=== PATIENT | female | born 1930 | race Caucasian/White ===

== ENCOUNTER → 2016-12-01 | Outpatient (CLI) | payer OTHER ==
[~2016-12-01] MED LIST: ACET-1256 PO; CALC600T9 PO; CHOL1000 PO; FSMD/70 PO; GEMF600T PO; LISI-787 PO; MAGN400T6 PO; MULT-190 PO; POTA10CA28 PO
[2016-12-01 13:10] LABS: BASO % 0.4 %; BASO ABS # 0.02 K/uL (0-0.2); COMPLETE YES; EOS % 1.8 %; HEMATOCRIT 34.8 % (37-47); LYMPH % 26.8 %; LYMPH ABS # 1.32 K/uL (1.2-3.4); MEAN CELL VOLUME 91.8 fL (80-100); MEAN CORPUSCULAR HEMOGLOBIN 30.6 pg (25-34); MEAN CORPUSCULAR HGB CONC 33.3 g/dl (32-36); MEAN PLATELET VOLUME 9.6 fL (7.4-10.4); MONO % 8.3 %; NEUT % 62.7 %; PLATELET COUNT 337 K/uL (130-400); RED BLOOD COUNT 3.79 M/uL (4.2-5.4); WHITE BLOOD COUNT 4.92 K/uL (4.8-10.8)
[2016-12-01 13:35] LABS: ALT/SGPT 15 U/L (12-78); AST/SGOT 18 U/L (15-37); BLOOD UREA NITROGEN 24 mg/dl (7-18); BUN/CREATININE RATIO 29.9 (10-20); CALCIUM 9.5 mg/dl (8.5-10.1); CARBON DIOXIDE 30 mmol/L (21-32); CHLORIDE 104 mmol/L (98-107); CHOLESTEROL 177 mg/dl (0-200); CREATININE 0.81 mg/dl (0.60-1.20); GLUCOSE 90 mg/dl (70-99); HDL CHOLESTEROL 90 mg/dl; LDL CHOLESTEROL CALCULATED 70 mg/dl; POTASSIUM 3.6 mmol/L (3.5-5.1); SODIUM 142 mmol/L (136-145); TRIGLYCERIDES 85 mg/dl (0-150); VERY LOW DENSITY LIPOPROT CALC 17 mg/dl
--- NOTE | 2016-12-09 06:30 | CODING QUERY MEDICAL NECESSITY ---
SUPPORTING DIAGNOSIS NEEDED Dr. Swanson, A supporting diagnosis is required for the test/procedure performed on this patient in order for us to be reimbursed by the patient's insurance. Please provide a supporting diagnosis for the following test/procedure listed below next to the test name along with your signature. *If there is no additional diagnosis for this patient that would support the following test/procedure please document that below next to the test/procedure. Test(s)/Procedure(s) that require a supporting diagnosis: * ([id number]) VITAMIN D ASSAY DIAGNOSIS: DATE OF SERVICE: 12/01/16 Provider Signature: Date: Thank you Artie Foster [facility] Information Management Once completed, please kindly fax back to [phone] For questions please call [phone]
== END | disposition home or self-care (01) ==
LOC: C.LABMFLN 11:25
PROVIDERS: ATTEND Family Medicine
DX: G89.18 Other acute postprocedural pain (principal); M54.16 Radiculopathy, lumbar region; E78.5 Hyperlipidemia, unspecified; I10 Essential (primary) hypertension; D64.9 Anemia, unspecified

== ENCOUNTER → 2017-06-08 | Day surgery (SDC) | payer OTHER ==
[2017-05-07 11:05] VITALS: Ht 165.1 cm; Wt 65.5 kg
[~2017-06-08] VITALS: Ht 165.1 cm; Wt 65.5 kg
[~2017-06-08] MED LIST changes: +500ML BSS 0.3ML EPI 1:1000PF IRRIG ONE; +ACETAMINOPHEN 325 MG TAB PO PRN; +AMVISC PLUS 0.8ML SYRINGE INT OCU ONE; +ATROPINE SULFATE 0.1 MG/ML 5ML SYR IV PRN; +BSS FLUSH ONE; +EpHEDrine SULFATE INJ 50 MG/ML AMP IV PRN; +EpINEphrine INJ 1MG/ML AMP 1 MG/ML AMP ONE; +LACTATED RINGER'S 1000ML 1,000 ML IV SCH; +LIDOCAINE 3.5% OPH GEL PER APPLICATION CHARGE ONE; +LIDOCAINE HCL 1% MPF 2 ML VIAL ONE; +MIDAZOLAM HCL 1 MG/ML 2ML VIAL ONE; +OCUCOAT 1 ML SOLN IO ONE; +ONDANSETRON INJ 2 MG/ML 2 ML VIAL IV PRN; +PHENYLEPHRINE HCL 10% OP SOLN PER DROP CHARGE OPR SCH; +POVIDONE-IODINE OP SOLN 30 ML BTL ONE; +PROPARACAINE 0.5% OP SOLN PER DROP CHARGE OPR SCH; +TOBRAMYCIN/DEXAMETHASONE OPH OINT PER APPLN CHARGE ONE
[2017-06-08] MEDS: PHENYLEPHRINE HCL 2.5% OP SOLN PER DROP CHARGE OPR SCH ×2 (11:25→11:30)
[2017-06-08] MEDS: TROPICAMIDE 1% OP SOLN PER DROP CHARGE OPR SCH ×2 (11:26→11:31)
[2017-06-08] MEDS: CYCLOPENTOLATE HCL 1% OP SOLN PER DROP CHARGE OPR SCH ×2 (11:27→11:32)
[2017-06-08] MEDS: KETOROLAC 0.5% OP SOLN PER DROP CHARGE OPR SCH ×2 (11:28→11:33)
[2017-06-08] MEDS: GATIFLOXACIN OP SOLN PER DROP CHARGE OPR SCH ×2 (11:29→11:40)
--- NOTE | 2017-06-08 11:56 | History & Physical Bridge - SC ---
H&P Re-Evaluation Bridge Note: I have examined the patient, reviewed the History & Physical and in the interval since the performance of the History & Physical I have noted the following changes of clinical significance: No changes noted
--- NOTE | 2017-06-08 12:30 | Discharge Instructions-SurgCtr ---
Discharge Instructions Date of Service Jun 08, 2017. Visit Reason for Visit: Cataract Right Eye Discharge Discharge Diagnosis / Problem: cataract Discharge Goals Goal(s): Improve function Activity Recommendations Activity Limitations: per Instructions/Follow-up section Anesthesia . Post Anesthesia Instructions: If you have had General Anesthesia or IV Sedation: * Do not drive today. * Resume driving when surgeon permits. * Do not make important decisions or sign legal documents today. * Call surgeon for: 1. Temperature elevations greater than 101 degrees F. 2. Uncontrollable pain. 3. Excessive bleeding. 4. Persistent nausea and vomiting. 5. Medication intolerance (nausea, vomiting or rash). * For nausea and vomiting use only clear liquids such as: tea, soda, bouillon until nausea subsides, then gradually increase diet as tolerated. * If you have any concerns or questions, call your surgeon's office. If physician is unavailable and it is an emergency, call 911 or go to the nearest emergency room. . Diet Recommendations Home Diet: resume previous diet Procedures Procedures Performed: Right Cataract Phacoemulsification With Intraocular Lens Implant Pending Studies Studies pending at discharge: no Medical Emergencies . Who to Call and When: Medical Emergencies: If at any time you feel your situation is an emergency, please call 911 immediately. . Non-Emergent Contact Non-Emergency issues call your: Preflight Inspector . . "Provider Documentation" section prepared by Jacky Monae. .
--- NOTE | 2017-06-08 12:30 | [facility] Operative Report ---
Operative Report Date of Service Jun 08, 2017. Operative Report 1. PREOPERATIVE DIAGNOSIS: Cataract of the right eye. 2. POSTOPERATIVE DIAGNOSIS: Same. 3. PROCEDURE: Phacoemulsification with intraocular lens implantation of the right eye. SURGEON: Dr. Jacky Monae. ANESTHESIA: Topical Lidocaine gel, 1% Non- Preserved intracameral Lidocaine, and monitored intravenous sedation. INDICATIONS FOR THE PROCEDURE: The patient is a 87 - year-old female with a history of cataract of the right eye causing significant visual impairment. The details of the proposed procedure were explained to the patient who asked appropriate questions and following discussion of all risks, benefits and alternatives agreed to have the procedure done. 4. OPERATION AND FINDINGS: DESCRIPTION OF PROCEDURE: After informed consent was obtained, the patient was brought to the Operating Room at the [facility]. The patient was placed in a supine position and then the right eye was prepped and draped in the usual sterile fashion for intraocular surgery. A drop of topical Lidocaine gel was placed in the operative eye. A wire lid speculum was then placed in the fornices. A corneal paracentesis was then created temporally. The Non-Preserved Lidocaine was then instilled into the anterior chamber. The anterior chamber was then pressurized with viscoelastic. A 2.0 mm clear corneal incision was then created temporally. A cystotome was inserted into the anterior chamber and used to create a tear in the anterior lens capsule. This capsular tear was then used to create a small flap and the flap was dragged in a counterclockwise direction in order to create a continuous curvilinear capsulorrhexis. Hydrodissection was accomplished with balanced salt solution. Phacoemulsification of the lens nucleus was then performed in a standard [id number] technique. The phaco time was 34 seconds with an average power of 16 %. The remaining cortical material was removed using irrigation aspiration. The capsular bag was then filled with viscoelastic. A [employer]ch [employer] Lomb MI60L +22.0 diopters lens was then loaded into the injector and injected into the capsular bag. The remaining viscoelastic was removed with the irrigation aspiration handpiece. The wound was hydrated and then checked and found to be watertight. The intraocular pressure was checked and found to be adequate. The wire lid speculum was removed and the patient's face was cleaned and dried. TobraDex ointment was placed in the inferior fornix. The patient was discharged to the Recovery Room having tolerated the procedure well. There were no complications. The patient will be seen tomorrow in the office for follow-up. I attest to the content of the Intraoperative Record and any orders documented therein. Any exceptions are noted below.
[2017-06-08 12:31] VITALS: TEMP 36.7
--- NOTE | 2017-06-08 12:39 | Anesthesia Progress Nt - [facility] ---
Anesthesia Post Op Note Date & Time Jun 08, 2017 at 12:38 Vital Signs Pain Intensity: 2 Vital Signs Past 12 Hours Date Time Temp Pulse Resp B/P (MAP) Pulse Ox O2 Delivery O2 Flow Rate FiO2 06/08/17 12:31 36.7 64 16 112/67 (82) 99 Room Air 06/08/17 11:16 36.6 73 18 174/77 (109) 98 Room Air Notes Mental Status: alert / awake / arousable, participated in evaluation Pt Amnestic to Procedure: Yes Nausea / Vomiting: adequately controlled Pain: adequately controlled Airway Patency, RR, SpO2: stable & adequate BP & HR: stable & adequate Hydration State: stable & adequate Anesthetic Complications: no major complications apparent
[2017-06-08 12:54] VITALS: BP 123/76; PULSE 61; O2SAT 95
== END | disposition home or self-care (01) ==
LOC: X.SURG 10:50
PROVIDERS: ATTEND Ophthalmology
DX: H26.9 Unspecified cataract (principal); I10 Essential (primary) hypertension; E78.5 Hyperlipidemia, unspecified; M85.80 Other specified disorders of bone density and structure, unspecified site; I87.2 Venous insufficiency (chronic) (peripheral); Z79.899 Other long term (current) drug therapy

== ENCOUNTER → 2017-06-22 | Day surgery (SDC) | payer OTHER ==
[2017-06-11 07:40] VITALS: Ht 165.1 cm; Wt 65.5 kg
[~2017-06-22] VITALS: Ht 165.1 cm; Wt 65.5 kg
[~2017-06-22] MED LIST changes: -LACTATED RINGER'S 1000ML 1,000 ML IV SCH; +LACTATED RINGER'S 1000ML 500 ML IV SCH; -ONDANSETRON INJ 2 MG/ML 2 ML VIAL IV PRN; +PHENYLEPHRINE HCL 10% OP SOLN PER DROP CHARGE OPL SCH; -PHENYLEPHRINE HCL 10% OP SOLN PER DROP CHARGE OPR SCH; +PROPARACAINE 0.5% OP SOLN PER DROP CHARGE OPL SCH; -PROPARACAINE 0.5% OP SOLN PER DROP CHARGE OPR SCH
[2017-06-22] MEDS: PHENYLEPHRINE HCL 2.5% OP SOLN PER DROP CHARGE OPL SCH ×2 (09:35→09:40)
[2017-06-22] MEDS: TROPICAMIDE 1% OP SOLN PER DROP CHARGE OPL SCH ×2 (09:36→09:41)
[2017-06-22] MEDS: CYCLOPENTOLATE HCL 1% OP SOLN PER DROP CHARGE OPL SCH ×2 (09:37→09:42)
[2017-06-22] MEDS: KETOROLAC 0.5% OP SOLN PER DROP CHARGE OPL SCH ×2 (09:38→09:43)
[2017-06-22] MEDS: GATIFLOXACIN OP SOLN PER DROP CHARGE OPL SCH ×2 (09:39→09:52)
--- NOTE | 2017-06-22 10:27 | History & Physical Bridge - SC ---
H&P Re-Evaluation Bridge Note: I have examined the patient, reviewed the History & Physical and in the interval since the performance of the History & Physical I have noted the following changes of clinical significance: Diagnosis: Left Cataract Procedure: Left Cataract Removal with Lens Implant No changes noted
--- NOTE | 2017-06-22 10:59 | [facility] Operative Report ---
Operative Report Date of Service Jun 22, 2017. Operative Report 1. PREOPERATIVE DIAGNOSIS: Cataract of the left eye. 2. POSTOPERATIVE DIAGNOSIS: Same. 3. PROCEDURE: Phacoemulsification with intraocular lens implantation of the left eye. SURGEON: Dr. Jacky Monae. ANESTHESIA: Topical Lidocaine gel, 1% Non- Preserved intracameral Lidocaine, and monitored intravenous sedation. INDICATIONS FOR THE PROCEDURE: The patient is a 87 - year-old female with a history of cataract of the left eye causing significant visual impairment. The details of the proposed procedure were explained to the patient who asked appropriate questions and following discussion of all risks, benefits and alternatives agreed to have the procedure done. 4. OPERATION AND FINDINGS: DESCRIPTION OF PROCEDURE: After informed consent was obtained, the patient was brought to the Operating Room at the [facility]. The patient was placed in a supine position and then the left eye was prepped and draped in the usual sterile fashion for intraocular surgery. A drop of topical Lidocaine gel was placed in the operative eye. A wire lid speculum was then placed in the fornices. A corneal paracentesis was then created temporally. The Non-Preserved Lidocaine was then instilled into the anterior chamber. The anterior chamber was then pressurized with viscoelastic. A 2.0 mm clear corneal incision was then created temporally. A cystotome was inserted into the anterior chamber and used to create a tear in the anterior lens capsule. This capsular tear was then used to create a small flap and the flap was dragged in a counterclockwise direction in order to create a continuous curvilinear capsulorrhexis. Hydrodissection was accomplished with balanced salt solution. Phacoemulsification of the lens nucleus was then performed in a standard [id number] technique. The phaco time was 34 seconds with an average power of 20 %. The remaining cortical material was removed using irrigation aspiration. The capsular bag was then filled with viscoelastic. A Bausch [employer] Lomb MI60L +23.0 diopters lens was then loaded into the injector and injected into the capsular bag. The remaining viscoelastic was removed with the irrigation aspiration handpiece. The wound was hydrated and then checked and found to be watertight. The intraocular pressure was checked and found to be adequate. The wire lid speculum was removed and the patient's face was cleaned and dried. TobraDex ointment was placed in the inferior fornix. The patient was discharged to the Recovery Room having tolerated the procedure well. There were no complications. The patient will be seen tomorrow in the office for follow-up. I attest to the content of the Intraoperative Record and any orders documented therein. Any exceptions are noted below.
--- NOTE | 2017-06-22 10:59 | Discharge Instructions-SurgCtr ---
Discharge Instructions Date of Service Jun 22, 2017. Visit Reason for Visit: Cataract Left Eye Discharge Discharge Diagnosis / Problem: cataract Discharge Goals Goal(s): Improve function Activity Recommendations Activity Limitations: per Instructions/Follow-up section Anesthesia . Post Anesthesia Instructions: If you have had General Anesthesia or IV Sedation: * Do not drive today. * Resume driving when surgeon permits. * Do not make important decisions or sign legal documents today. * Call surgeon for: 1. Temperature elevations greater than 101 degrees F. 2. Uncontrollable pain. 3. Excessive bleeding. 4. Persistent nausea and vomiting. 5. Medication intolerance (nausea, vomiting or rash). * For nausea and vomiting use only clear liquids such as: tea, soda, bouillon until nausea subsides, then gradually increase diet as tolerated. * If you have any concerns or questions, call your surgeon's office. If physician is unavailable and it is an emergency, call 911 or go to the nearest emergency room. . Diet Recommendations Home Diet: resume previous diet Procedures Procedures Performed: Left Cataract Phacoemulsification With Intraocular Lens Implant Pending Studies Studies pending at discharge: no Medical Emergencies . Who to Call and When: Medical Emergencies: If at any time you feel your situation is an emergency, please call 911 immediately. . Non-Emergent Contact Non-Emergency issues call your: Clay Caster . . "Provider Documentation" section prepared by Jacky Monae. .
[2017-06-22 11:00] VITALS: TEMP 36.4
--- NOTE | 2017-06-22 11:10 | Anesthesia Progress Nt - [facility] ---
Anesthesia Post Op Note Date & Time Jun 22, 2017 at 11:10 Vital Signs Pain Intensity: 0 Vital Signs Past 12 Hours Date Time Temp Pulse Resp B/P (MAP) Pulse Ox O2 Delivery O2 Flow Rate FiO2 06/22/17 11:00 36.4 58 16 132/69 (90) 96 Room Air 06/22/17 09:26 36.3 66 16 164/77 (106) 99 Room Air Notes Mental Status: alert / awake / arousable, participated in evaluation Pt Amnestic to Procedure: Yes Nausea / Vomiting: adequately controlled Pain: adequately controlled Airway Patency, RR, SpO2: stable & adequate BP & HR: stable & adequate Hydration State: stable & adequate Anesthetic Complications: no major complications apparent
[2017-06-22 11:25] VITALS: BP 124/85; PULSE 59; O2SAT 98
== END | disposition home or self-care (01) ==
LOC: X.SURG 09:09
PROVIDERS: ATTEND Ophthalmology
DX: H26.9 Unspecified cataract (principal); I10 Essential (primary) hypertension; E78.5 Hyperlipidemia, unspecified; M19.90 Unspecified osteoarthritis, unspecified site; M85.80 Other specified disorders of bone density and structure, unspecified site; Z68.24 Body mass index [BMI] 24.0-24.9, adult; Z88.5 Allergy status to narcotic agent; Z90.710 Acquired absence of both cervix and uterus; Z90.722 Acquired absence of ovaries, bilateral; Z90.89 Acquired absence of other organs; Z82.49 Family history of ischemic heart disease and other diseases of the circulatory system; Z80.1 Family history of malignant neoplasm of trachea, bronchus and lung; Z80.8 Family history of malignant neoplasm of other organs or systems; Z83.49 Family history of other endocrine, nutritional and metabolic diseases

== ENCOUNTER → 2017-07-09 | Outpatient (CLI) | payer OTHER ==
[~2017-07-09] MED LIST changes: -500ML BSS 0.3ML EPI 1:1000PF IRRIG ONE; -ACETAMINOPHEN 325 MG TAB PO PRN; -AMVISC PLUS 0.8ML SYRINGE INT OCU ONE; -ATROPINE SULFATE 0.1 MG/ML 5ML SYR IV PRN; -BSS FLUSH ONE; -EpHEDrine SULFATE INJ 50 MG/ML AMP IV PRN; -EpINEphrine INJ 1MG/ML AMP 1 MG/ML AMP ONE; -LACTATED RINGER'S 1000ML 500 ML IV SCH; -LIDOCAINE 3.5% OPH GEL PER APPLICATION CHARGE ONE; -LIDOCAINE HCL 1% MPF 2 ML VIAL ONE; -MIDAZOLAM HCL 1 MG/ML 2ML VIAL ONE; -OCUCOAT 1 ML SOLN IO ONE; -PHENYLEPHRINE HCL 10% OP SOLN PER DROP CHARGE OPL SCH; -POVIDONE-IODINE OP SOLN 30 ML BTL ONE; -PROPARACAINE 0.5% OP SOLN PER DROP CHARGE OPL SCH; -TOBRAMYCIN/DEXAMETHASONE OPH OINT PER APPLN CHARGE ONE
[2017-07-09 13:05] LABS: BASO % 0.5 %; BASO ABS # 0.02 K/uL (0-0.2); COMPLETE YES; EOS % 2.7 %; HEMATOCRIT 35.9 % (37-47); IG% 0.2 %; LYMPH ABS # 1.14 K/uL (1.2-3.4); MEAN CELL VOLUME 90.4 fL (80-100); MEAN CORPUSCULAR HEMOGLOBIN 29.7 pg (25-34); MEAN CORPUSCULAR HGB CONC 32.9 g/dl (32-36); MEAN PLATELET VOLUME 9.2 fL (7.4-10.4); MONO % 8.9 %; NEUT % 61.7 %; PLATELET COUNT 307 K/uL (130-400); RED BLOOD COUNT 3.97 M/uL (4.2-5.4); WHITE BLOOD COUNT 4.39 K/uL (4.8-10.8)
[2017-07-09 13:35] LABS: ALT/SGPT 16 U/L (12-78); AST/SGOT 16 U/L (15-37); BLOOD UREA NITROGEN 20 mg/dl (7-18); BUN/CREATININE RATIO 25.8 (10-20); CALCIUM 9.9 mg/dl (8.5-10.1); CARBON DIOXIDE 29 mmol/L (21-32); CHLORIDE 105 mmol/L (98-107); CREATININE 0.78 mg/dl (0.60-1.20); GLUCOSE 84 mg/dl (70-99); POTASSIUM 3.8 mmol/L (3.5-5.1); SODIUM 140 mmol/L (136-145)
[2017-07-09 13:38] LABS: CHOLESTEROL 177 mg/dl (0-200); CHOLESTEROL/HDL RATIO 1.7; HDL CHOLESTEROL 105 mg/dl; LDL CHOLESTEROL CALCULATED 59 mg/dl; TOTAL IRON BINDING CAPACITY 435 mcg/dl (250-450); TRIGLYCERIDES 65 mg/dl (0-150); VERY LOW DENSITY LIPOPROT CALC 13 mg/dl
== END | disposition home or self-care (01) ==
LOC: C.LABMFLN 06:56
PROVIDERS: ATTEND Family Medicine
DX: E78.5 Hyperlipidemia, unspecified (principal); I10 Essential (primary) hypertension; M85.80 Other specified disorders of bone density and structure, unspecified site; D64.9 Anemia, unspecified

== ENCOUNTER → 2018-01-10 | Outpatient (CLI) | payer OTHER ==
[2018-01-10 12:45] LABS: BASO % 0.5 %; BASO ABS # 0.02 K/uL (0-0.2); EOS % 2.7 %; EOS ABS # 0.12 K/uL (0-0.5); HEMOGLOBIN 11.9 g/dL (12.0-16.0); LYMPH % 25.3 %; LYMPH ABS # 1.11 K/uL (1.2-3.4); MEAN CELL VOLUME 89.8 fL (80-100); MEAN CORPUSCULAR HEMOGLOBIN 29.7 pg (25-34); MEAN CORPUSCULAR HGB CONC 33.1 g/dl (32-36); MONO % 7.1 %; MONO ABS # 0.31 K/uL (0.11-0.59); NEUT % 64.4 %; NEUT ABS # 2.83 K/uL (1.4-6.5); PLATELET COUNT 317 K/uL (130-400); RED CELL DISTRIBUTION WIDTH CV 13.5 % (11.5-14.5); RED CELL DISTRIBUTION WIDTH SD 44.6 fL (36.4-46.3); WHITE BLOOD COUNT 4.39 K/uL (4.8-10.8)
[2018-01-10 13:20] LABS: ALT/SGPT 18 U/L (12-78); AST/SGOT 20 U/L (15-37); BLOOD UREA NITROGEN 18 mg/dl (7-18); CARBON DIOXIDE 31 mmol/L (21-32); CHOLESTEROL 161 mg/dl (0-200); GLUCOSE 84 mg/dl (70-99); POTASSIUM 3.4 mmol/L (3.5-5.1); SODIUM 141 mmol/L (136-145)
[2018-01-10 13:23] LABS: LDL CHOLESTEROL CALCULATED 59 mg/dl
== END | disposition home or self-care (01) ==
LOC: C.LABMFLN 06:55
PROVIDERS: ATTEND Family Medicine
DX: E78.5 Hyperlipidemia, unspecified (principal); I10 Essential (primary) hypertension; M85.80 Other specified disorders of bone density and structure, unspecified site; D64.9 Anemia, unspecified

== ENCOUNTER → 2018-01-18 | Outpatient (CLI) | payer OTHER | END | disposition home or self-care (01) | LOC: C.LABMFLN 13:36 | PROVIDERS: ATTEND Family Medicine | DX: R32 Unspecified urinary incontinence (principal) ==

== ENCOUNTER → 2018-04-05 | Outpatient (CLI) | payer OTHER | END | disposition home or self-care (01) | LOC: C.LABMFLN 11:07 | PROVIDERS: ATTEND Family Medicine | DX: N39.0 Urinary tract infection, site not specified (principal); N89.8 Other specified noninflammatory disorders of vagina ==

== ENCOUNTER 2021-07-28 05:06 | Observation (INO) ==
--- NOTE | 2021-07-01 09:34 | Anesthesiology Consultation ---
Date of Service July 01, 2021 Assessment & Plan (1) Encounter for pre-operative examination: - Abnormal Preop EKG: Possible anteroseptal myocardial infarction. Per PCP note (06/27/21): "Dr. Swanson is suggesting an ECHO and possible cardiac consultation since there is no record of an old EKG to compare with." Per Lynette Tompkins LPN at PCP office, Dr. Swanson feels cardiac consultation only needed if significant abnormalities noted on ECHO (which is currently scheduled 07/02 at [facility]). Awaiting PCP-ordered ECHO report. - COVID screening: Per assessment on 06/30: Travel screen negative, no known C OVID-19 positive contacts or current COVID-19 related symptoms. Surgeon arranging preop COVID testing. Awaiting results. Chart Review Chart Review: Patient NOT seen in Pre Admission Testing History Surgery Operation Date: 07/07/21 11:00 Proposed Procedures p Laparoscopic Cholecystectomy - Joseph Cortes MD, FACS Height/Weight Height: 5 ft 3 in Weight: 54.431 kg Allergies Allergy/AdvReac Type Severity Reaction Status Date / Time Sulfa (Sulfonamide Allergy Unknown Unknown Verified 06/30/21 10:35 Antibiotics) aspirin AdvReac Severe upset Verified 06/30/21 10:35 stomach morphine AdvReac Severe Vomiting Verified 06/30/21 10:35 celecoxib [From Celebrex] AdvReac Mild Nausea Verified 06/30/21 10:35 omeprazole AdvReac Mild Nausea Verified 06/30/21 10:35 Medications Home Medications Medication Instructions Recorded Confirmed Last Taken cyanocobalamin (vitamin B-12) 1,000 mcg SL HS tab 07/17/19 06/30/21 Unknown 1,000 mcg sublingual tablet gemfibrozil 600 mg tablet 600 mg PO BID #180 tab 07/09/20 06/30/21 Unknown acetaminophen 500 mg capsule 500 mg PO Q6H PRN 07/18/20 06/30/21 Unknown famotidine 20 mg tablet 20 mg PO BID #60 tab 05/28/21 06/30/21 Unknown melatonin 3 mg tablet 3 mg PO HS PRN 06/23/21 06/30/21 Unknown calcium carbonate-vitamin D3 600 1 cap PO BID 06/30/21 06/30/21 Unknown mg calcium-200 unit capsule (Calcium 600 + D(3)) cholecalciferol (vitamin D3) 25 25 mcg PO HS 06/30/21 06/30/21 Unknown mcg (1,000 unit) capsule (Vitamin D3) lisinopril 20 mg tablet 20 mg PO QAM 06/30/21 06/30/21 Unknown metoprolol succinate 25 mg 25 mg PO QAM 06/30/21 06/30/21 Unknown tablet,extended release 24 hr vitamins A,C,L-jqni-bpefmp 7,160 1 tab PO BID 06/30/21 06/30/21 Unknown unit-113 mg-100 unit tablet (PreserVision AREDS) Past Medical History Medical History Back pain, chronic Benign essential hypertension Chronic anemia Depression Diverticulitis Hx GERD (gastroesophageal reflux disease) Hearing deficit Hyperlipidemia Osteoporosis Vaginal fistula Per records, pt aware Venous insufficiency "Mild" Past Family History Family History Son Hypercholesterolemia Myocardial infarction Daughter Brain cancer Mother Hypertension Father Lung cancer Sister Breast cancer Other No family history of adverse response to anesthesia Past Surgical History Surgical History History of cataract surgery R/L History of hysterectomy BRANDON with unilateral oopherectomy History of oophorectomy Removed "1.5 ovaries" History of tonsillectomy Hx of colonoscopy S/P laparotomy To repair a laceration from hysterectomy Social History Smoking Status: Never smoker Do You Dip or Chew Tobacco: No Hx Alcohol Use: No Hx Substance Use: No substance use type: does not use Lab Results Anesthesia Preop Results Results Anesthesia Widget: WBC 4.48 K/uL (4.8-10.8) L 06/23/21 Hgb 12.0 g/dL (12.0-16.0) 06/23/21 Hct 36.7 % (37-47) L 06/23/21 Plt 384 K/uL (130-400) 06/23/21 Na 133 mmol/L (136-145) L 06/23/21 K 3.6 mmol/L (3.5-5.1) 06/23/21 Cl 99 mmol/L (98-107) 06/23/21 CO2 30 mmol/L (21-32) 06/23/21 BUN 15 mg/dl (7-18) 06/23/21 Creat 0.67 mg/dl (0.6-1.2) 06/23/21 Glucose Level 90 mg/dl (70-99) 06/23/21 PT 11.0 Seconds (9.0-12.0) 06/23/21 PTT 26.3 Seconds (21.0-31.0) 06/23/21 INR 1.1 (0.9-1.1) 06/23/21 Urine Color Yellow 06/23/21 Urine Appearance Clear (Clear) 06/23/21 Urine pH 6.5 (4.5-7.5) 06/23/21 Urine Specific [place] 1.019 (1.000-1.030) 06/23/21 Urine Protein Negative (Negative) 06/23/21 Urine Glucose (UA) Negative (Negative) 06/23/21 Urine Ketones Negative (Negative) 06/23/21 Urine Blood Negative (Negative) 06/23/21 Urine Nitrite Negative (Negative) 06/23/21 Urine Bilirubin Negative (Negative) 06/23/21 Urine Urobilinogen Negative (Negative) 06/23/21 Urine Leukocyte Esterase Negative (Negative) 06/23/21 Testing Electrocardiogram Date: 06/25/21 SR with first degree AVB with occasional supraventricular premature complexes at 66bpm. Marked LAD. LVH. Possible anteroseptal myocardial infarction.
[~2021-07-28 05:06] MED LIST changes: -ACET-1256 PO; -CALC600T9 PO; -CHOL1000 PO; -FSMD/70 PO; -GEMF600T PO; +LACTATED RINGER'S 1,000 ML IV SCH; -LISI-787 PO; -MAGN400T6 PO; -MULT-190 PO; -POTA10CA28 PO; +cefUROXime 1,500 MG in DEXTROSE 5% 100 ML IV SCH
[2021-07-28] MEDS ORDERED: cefUROXime 1,500 MG in DEXTROSE 5% 100 ML IV SCH (06:00)
[2021-07-28] MEDS ORDERED: BUPIVACAINE 0.5 % 5 MG/1 ML MPF 30ML VIAL ONE (06:42)
[2021-07-28] MEDS ORDERED: LACTATED RINGER'S 1,000 ML IV SCH ×3 (06:45→17:30)
[2021-07-28] MEDS ORDERED: ONDANSETRON INJ 2 MG/ML 2 ML VIAL ONE (06:49)
[2021-07-28] MEDS ORDERED: LIDOCAINE 2% 2 ML VIAL/AMP(20MG/ML) INFIL ONE (06:49)
[2021-07-28] MEDS ORDERED: PROPOFOL IV EMULSION 10 MG/ML 20 ML VIAL IV ONE (06:49)
[2021-07-28] MEDS ORDERED: NEOSTIGMINE METHYLSULFATE 1 MG/ML 10ML VIAL ONE (06:49)
[2021-07-28] MEDS ORDERED: GLYCOPYRROLATE 0.2 MG/ML VIAL ONE ×2 (06:49→07:55)
[2021-07-28] MEDS ORDERED: DEXAMETHASONE SOD INJ 4 MG/ML VIAL ONE (06:49)
[2021-07-28] MEDS ORDERED: fentaNYL citrate 100 MCG/2 ML VIAL ONE (06:49)
[2021-07-28] MEDS ORDERED: NALOXONE HCL 0.4 MG/1 ML VIAL/CARP IV PRN (06:51)
[2021-07-28] MEDS ORDERED: PROMETHAZINE HCL 12.5 MG in SODIUM CHLORIDE 0.9% 50 ML IV PRN ×2 (06:51→10:35)
[2021-07-28] MEDS ORDERED: LABETALOL HCL IV 5 MG/ML 20ML IV PRN (06:51)
[2021-07-28] MEDS ORDERED: ATROPINE SULFATE 0.1 MG/ML 10ML SYR IV PRN (06:51)
[2021-07-28] MEDS ORDERED: FLUMAZENIL 0.1 MG/1 ML 10 ML VIAL IV PRN (06:51)
[2021-07-28] MEDS ORDERED: ONDANSETRON INJ 2 MG/ML 2 ML VIAL IV PRN ×2 (06:51→10:35)
[2021-07-28] MEDS ORDERED: ePHEDrine sulfate 50 MG/ML AMP IV PRN (06:51)
[2021-07-28] MEDS ORDERED: ROCURONIUM BROMIDE 10 MG/ML 5 ML VIAL IV ONE (07:40)
[2021-07-28] MEDS ORDERED: ACETAMINOPHEN 1,000 MG/100 ML VIAL IV ONE (07:51)
--- NOTE | 2021-07-28 07:51 | Post Operative Brief Note ---
PG Immediate Post Op with CF Date of Surgery July 28, 2021 Pre & Post Diagnosis Operation Date: 07/07/21 11:00 <No data on this case meets the specified criteria> Operation Date: 07/28/21 07:00 Pre-Op Diagnosis: Cholecystitis Post-Op Diagnosis: Cholecystitis- chronic I identified the patient and participated in the time-out.: Yes Procedure Operation Date: 07/07/21 11:00 <No data on this case meets the specified criteria> Operation Date: 07/28/21 07:00 Actual Procedures p Laparoscopic Cholecystectomy(Not Applicable) - Joseph Cortes MD, FACS Surgeon Joseph Cortes MD, FACS Virtualization Consultant Keira Joiner Estimated Blood Loss 5 Findings Consistent with Post-Op Diagnosis enormous gallbladder, significant distention, massive number of stones, small stone in the cystic duct Specimens Specimen Description: A: Gallbladder and Contents
--- NOTE | 2021-07-28 08:12 | Operative Report (OR) ---
DATE OF OPERATION: 07/28/2021 NAME OF OPERATION: Laparoscopic cholecystectomy. PREOPERATIVE DIAGNOSIS: Chronic cholecystitis. POSTOPERATIVE DIAGNOSIS: Chronic cholecystitis. STAFF SURGEON: Joseph Cortes MD. VULCANIZING PRESS OPERATOR: Artie Joiner PA-C. ANESTHESIA: General. DESCRIPTION OF PROCEDURE: The patient was brought in the operating room and placed on the operating table in supine position. Her abdomen was prepped and draped in the usual fashion. Pneumatic stocki ngs and orogastric tube were placed. My news assistant helped with prepping, draping, removal of the gall bladder and closure of the wound. We used 0.5% plain Marcaine to anesthetize all incisions. An inci raheel was made just above the umbilicus, carrying dissection down, placing a Veress needle through the fascia, producing pneumoperitoneum, placing an 11 mm port. Under visualization, three 5 mm ports we re placed, one cephalad and two laterally. The patient's gallbladder was enormous. It was full of stones. It was very distended. It was aspir ated of bile, almost 100 mL. Dissection carried out to the traci hepatis identifying the cystic duct and cystic artery. These were clipped and transected. The patient did have chronic scar tissue from chronic cholecystitis. She also had a small stone in the cystic duct, which was removed. This was likely obstructing her duct. The gallbladder was dissected away from the liver bed and placed in an Endobag. We did have to enlarge the incision at the umbilicus because of the size of the gallbladder and a number of stones in the gallbladder. The fascia at the umbilicus was then closed after the gallbladder was removed using 0 PDS suture. Sk in at the umbilicus closed using 4-0 nylon suture. The other sites closed using subcuticular 4-0 Mon ocryl and Dermabond. The patient was transferred to recovery room in stable condition. Job ID: [id number]
[2021-07-28] MEDS: fentaNYL citrate 100 MCG/2 ML VIAL IV PRN ×4 (08:24→08:39)
[2021-07-28] MEDS ORDERED: hydrALAZINE HCL 20 MG/ML VIAL IV STA (08:42)
[2021-07-28] MEDS ORDERED: hydrALAZINE HCL 20 MG/ML VIAL ONE (08:43)
[2021-07-28] MEDS ORDERED: SODIUM CHLORIDE 0.9% 50 ML BAG ONE (09:17)
[2021-07-28] MEDS ORDERED: PROMETHAZINE HCL INJ 25 MG/ML 1 ML VIAL ONE (09:18)
--- NOTE | 2021-07-28 09:48 | Anesthesiology Progress Note ---
Date of Service July 28, 2021 Anesthesia Post Procedure Vital Signs Vital Signs: Temp Pulse Pulse Resp BP BP Pulse Ox 07/28/21 09:35 65 20 146/61 H 97 07/28/21 09:25 62 15 141/58 H 97 07/28/21 09:15 61 17 150/64 H 97 07/28/21 09:05 62 24 157/66 H 97 07/28/21 08:55 62 15 151/61 H 98 07/28/21 08:45 53 L 17 173/78 H 97 07/28/21 08:35 62 12 179/83 H 89 L 07/28/21 08:25 58 L 15 165/76 H 100 07/28/21 08:15 61 15 178/80 H 100 07/28/21 08:05 36.5 C 77 19 183/87 H 95 07/28/21 05:38 36.6 C 76 18 179/82 H 96 Pain Intensity Abdomen: Pain Intensity: 7 Transfer of Care Handoff Completed per policy Notes Mental Status: alert / awake / arousable Patient Amnestic to Procedure: Yes Nausea / Vomiting: adequately controlled Pain: adequately controlled Airway Patency, RR, SpO2: stable & adequate BP & HR: stable & adequate Hydration State: stable & adequate Anesthetic Complications: no major complications apparent
[2021-07-28] MEDS ORDERED: lisinopril 20 MG TAB PO SCH (10:35)
[2021-07-28] MEDS ORDERED: HYDROmorphone INJ 0.5 MG/0.5 ML SYR IV PRN (10:35)
[2021-07-28] MEDS ORDERED: traMADol HCL 50 MG TABLET PO PRN (10:35)
[2021-07-28] MEDS ORDERED: MELATONIN 3 MG TAB PO PRN (10:35)
[2021-07-28] MEDS ORDERED: ACETAMINOPHEN 325 MG TAB PO PRN (10:35)
[2021-07-28] MEDS: FAMOTIDINE 20 MG TAB PO SCH ×2 (12:45→21:12)
[2021-07-28] MEDS: METOPROLOL SUCC 25MG EXT REL TAB PO SCH (13:15)
[2021-07-28] MEDS: gemfibroziL 600 MG TAB PO SCH ×2 (13:15→21:10)
--- NOTE | 2021-07-28 16:16 | Consultation ---
Date of Consultation July 28, 2021 Assessment & Plan (1) Benign essential hypertension: Pt with low-normal BP post-op, and mild oliguria. Would hold lisinopril. Continue beta joesph. Hydrate overnight. Repeat BMP in am. Ok to resume ELVIRA tomorrow if creatinine is stable. (2) Hyperlipidemia: Continue gemfibrozil bid. (3) S/P laparoscopic cholecystectomy: numerous gallstones in a very large gall bladder. s/p lap deon by Dr Cortes. if patient continues to have early satiety and abdominal fullness despite the gall bladder being removed she would need referral to GI for upper endoscopy. Continue IV fluids overnight BMP am Thank you for this consult. History of Present Illness Requesting Physician: Joseph Cortes MD Reason for Consultation: post-op medical management Attending Physician: Joseph Cortes MD, [facility] History of Present Illness Pleasant 89yo female with HTN and hyperlipidemia who presented today for elective laparoscopic cholecystectomy. Patient states she has had intermittent abdominal fullness, nausea, and diarrhea for some time. This led to a CT scan of the abd/pelvis in the recent past that showed a very d istended gall bladder with numerous gallstones. She was referred to Dr Joseph Cortes who recommended cholecystectomy. I saw the patient in the PACU. She was resting comfortably. Denied chest pain, dyspnea, nausea or emesis. Prior to admission today she has been feeling well with no fevers, dysphagia, sore throat, dysuria, or anorexia. She did endorse very mild incisional pain. Allergies Allergy/AdvReac Type Severity Reaction Status Date / Time Sulfa (Sulfonamide Allergy Unknown Unknown Verified 07/28/21 05:32 Antibiotics) aspirin AdvReac Severe upset Verified 07/28/21 05:32 stomach morphine AdvReac Severe Vomiting Verified 07/28/21 05:32 celecoxib [From Celebrex] AdvReac Mild Nausea Verified 07/28/21 05:32 omeprazole AdvReac Mild Nausea Verified 07/28/21 05:32 Home Medications Medication Instructions Recorded Confirmed Type cyanocobalamin (vitamin B-12) 1,000 mcg SL HS tab 07/17/19 07/28/21 History 1,000 mcg sublingual tablet gemfibrozil 600 mg tablet 600 mg PO BID #180 tab 07/09/20 07/28/21 Rx acetaminophen 500 mg capsule 500 mg PO Q6H PRN 07/18/20 07/28/21 History famotidine 20 mg tablet 20 mg PO BID #60 tab 05/28/21 07/28/21 Rx melatonin 3 mg tablet 3 mg PO HS PRN 06/23/21 07/28/21 History calcium carbonate-vitamin D3 600 1 cap PO BID 06/30/21 07/28/21 History mg calcium-200 unit capsule (Calcium 600 + D(3)) cholecalciferol (vitamin D3) 25 25 mcg PO HS 06/30/21 07/28/21 History mcg (1,000 unit) capsule (Vitamin D3) lisinopril 20 mg tablet 20 mg PO QAM 06/30/21 07/28/21 History metoprolol succinate 25 mg 25 mg PO QAM 06/30/21 07/28/21 History tablet,extended release 24 hr vitamins A,C,M-oowh-lqnaxc 7,160 1 tab PO BID 06/30/21 07/28/21 History unit-113 mg-100 unit tablet (PreserVision AREDS) tramadol 50 mg tablet 50 - 100 mg PO Q6H #30 tab 07/29/21 Rx Patient History Medical History (Updated 07/28/21 @ 19:33 by Kunal Love) Back pain, chronic Benign essential hypertension Chronic anemia Depression Diverticulitis Hx GERD (gastroesophageal reflux disease) Hearing deficit Hyperlipidemia Osteoporosis Vaginal fistula Per records, pt aware Venous insufficiency "Mild" Surgical History (Updated 07/29/21 @ 09:54 by Deb Jain RN) History of cataract surgery R/L History of hysterectomy BRANDON with unilateral oopherectomy History of oophorectomy Removed "1.5 ovaries" History of tonsillectomy Hx laparoscopic cholecystectomy (07/28/21) Laparoscopic cholecystectomy. Dr. Cortes 07/28/2021 Hx of colonoscopy S/P laparotomy To repair a laceration from hysterectomy Family History Son Hypercholesterolemia Myocardial infarction Daughter Brain cancer Mother Hypertension Father Lung cancer Sister Breast cancer Other No family history of adverse response to anesthesia Social History Smoking Status: Never smoker Second Hand Exposure: No; Do You Dip or Chew Tobacco: No; Tobacco Cessation Education Requested by Patient: No Hx Alcohol Use: No Hx Substance Use: No Preferred Language: Tamazight Communication Ability: Effective Visual Impairment: No Limitations Hearing Ability: Hard of Hearing Planimeter Operator Required: No Beliefs That Will Affect Care: None marital status: / Current Living Situation: Alone Current Living Situation Comment: lives in [place] current occupational status: retired 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 How many Children do You have: 3 How many Children do You have Comment: 1 child is Other Information That Helps Us Care for You: No Feels Safe at Home: Yes Safety Concerns: Feels Safe At This Time Childhood Exposure to Second-Hand Smoke: Yes Dental Care, Regularly: Yes Physical Activity Frequency: Daily Seatbelt Use: always Sunscreen Use: No Assistive Devices: None Review of Systems Review of Systems: gen - no fevers, chills, anorexia; mild weight loss - 5-6 pounds in the last year eyes - no recent changes in vision HENT - no sore throat, nasal congestion, dysphagia, odynophagia neck - denies pain CV - no chest pain pulm - minimal, intermittent cough; no dyspnea GI - intermittent abd fullness, nausea, diarrhea; no blood per rectum - urinary incontinence with frequency musculo - denies pain skin - no rash endo - no diabetes neuro - no focal motor deficits Physical Exam Physical Exam: gen - NAD, pleasant eyes - lens implants b/l; PERRL HENT - MMM, no lesions neck - no JVD, no goiter heart - RRR, s1 s2, 1/6 SISSY LLSB lungs - CTA b/l abd - mild distension, BS+ but decreased; incisions c/d/i; NT ext - no edema, pulses 2+ b/l neuro - strength 5/5 x 4 exts psych - a/o x 3 skin - no rash Results & Data ([facility]) Vital Signs (Past 12 Hours) Vital Signs Temp Pulse Pulse Resp BP BP Pulse Ox 07/28/21 13:10 72 18 122/52 L 100 07/28/21 12:10 36.5 C 71 18 122/79 100 07/28/21 11:30 36.6 C 65 18 119/52 L 97 07/28/21 11:00 59 L 16 128/52 L 98 07/28/21 10:30 36.2 C L 68 16 140/57 L 98 07/28/21 10:15 62 17 127/53 L 98 07/28/21 10:00 61 16 123/53 L 98 07/28/21 09:45 36.5 C 58 L 13 129/59 L 97 07/28/21 09:35 65 20 146/61 H 97 07/28/21 09:25 62 15 141/58 H 97 07/28/21 09:15 61 17 150/64 H 97 07/28/21 09:05 62 24 157/66 H 97 07/28/21 08:55 62 15 151/61 H 98 07/28/21 08:45 53 L 17 173/78 H 97 07/28/21 08:35 62 12 179/83 H 89 L 07/28/21 08:25 58 L 15 165/76 H 100 07/28/21 08:15 61 15 178/80 H 100 07/28/21 08:05 36.5 C 77 19 183/87 H 95 07/28/21 05:38 36.6 C 76 18 179/82 H 96 Laboratory Results pre-op labs reviewed Na 133 Hb 12 PG Care Time/CCT Total # of Minutes Spent Total Time Spent with Patient: Total time spent is greater than 50% in coordination of care (as documented) at patient's floor/unit and/or counseling patient: Coding Level of Care Code 96774 Subseq Hosp Care Lvl 3 Diagnoses Benign essential hypertension I10 Hyperlipidemia E78.5 S/P laparoscopic cholecystectomy Z90.49
[2021-07-29] MEDS: METOPROLOL SUCC 25MG EXT REL TAB PO SCH (07:25)
[2021-07-29] MEDS: gemfibroziL 600 MG TAB PO SCH (07:25)
[2021-07-29] MEDS: FAMOTIDINE 20 MG TAB PO SCH (07:26)
[2021-07-29 08:23] LABS: BUN Creatinine Ratio 19.5 (10-20); Calcium 9.1 mg/dl (8.5-10.1); Creatinine Clr Calc Pharmacy 46.4 ml/min; Est GFR (African American) 89.9 ml/min; Est GFR (Non-African American) 77.6 ml/min; Potassium 3.9 mmol/L (3.5-5.1)
--- NOTE | 2021-07-29 10:34 | Communication Note ---
Date of Service: July 29, 2021 Pt was d/c before I could perform a bedside assessment. However, vitals were stable overnight, and UOP was improved overnight with fluids. BMP wnl. Ok to resume ELVIRA. Cont metoprolol. f/u with PCP within 1-2 weeks post discharge. Kunal Love MD
--- NOTE | 2021-07-29 12:37 | Discharge Summary (DS) ---
DATE OF ADMISSION: 07/28/2021 DATE OF DISCHARGE: 07/29/2021 PRINCIPAL DIAGNOSIS: Chronic cholecystitis. PROCEDURE: The patient underwent laparoscopic cholecystectomy. HISTORY OF PRESENT ILLNESS: The patient is an 89-year-old female who has been having abdominal sympt oms, likely from her gallbladder secondary to severe distention and cholelithiasis. She was brought in the hospital on 07/28/2021 where she underwent elective laparoscopic cholecystectomy, which showed a very distended, enormous gallbladder filled with stones with a small stone in the cystic duct. Sharla woods has done well overnight being kept for observation and is felt stable for discharge home today. Sharla woods will be followed in the surgical clinic within 1-2 weeks. Job ID: [id number]
== END 2021-07-29 10:31 | disposition home or self-care (01) ==
LOC: PACUINP 05:06 → ASU 05:06